=== PATIENT | female | born 1965 | race African-American/Black ===

== ENCOUNTER 2019-02-06 10:46 | Inpatient (IN) | payer OTHER ==
[2019-02-06 11:18] VITALS: BMI 32.5
--- NOTE | 2019-02-06 12:57 | HP ---
CIWA Score Nausea/Vomitin Muscle Tremors: 3 Anxiety: 3 Agitation: 3 Paroxysmal Sweats: 1-Minimal Palms Moist Orientation: 0-Oriented Tacttile Disturbances: 1-Very Mild Itch/Numbness Auditory Disturbances: 0-None Visual Disturbances: 0-None Headache: 2-Mild CIWA-Ar Total Score: 15 - Admission Criteria OASAS Guidelines: Admission for Medically Managed Detox: Requires at least one of the followin. CIWA greater than 12 2. Seizures within the past 24 hours 3. Delirium tremens within the past 24 hours 4. Hallucinations within the past 24 hours 5. Acute intervention needed for co occurring medical disorder 6. Acute intervention needed for co occurring psychiatric disorder 7. Severe withdrawal that cannot be handled at a lower level of care (continued vomiting, continued diarrhea, abnormal vital signs) requiring intravenous medication and/or fluids 8. Admission ROS S - HPI Chief Complaint: i german help to stop drinking alcohol and cocaine Allergies/Adverse Reactions: Allergies Allergy/AdvReac Type Severity Reaction Status Date / Time No Known Allergies Allergy Verified 02/06/19 11:06 History of Present Illness: this 53 years old female with alcohol dependence and cocaine abused,seeking detox,withdrawal symptom, multiple admissions in detox,last [id number] denied seizure,denied syncope nicotine 2 cigarette/day does not want nicotine replacement bipolar disorder,manic depression longest period of sobriety 2 years plan for out patent program after rehab Exam Limitations: No Limitations - Ebola screening Have you traveled outside of the country in the last 21 days: No Have you had contact with anyone from an Ebola affected area: No Do you have a fever: No - Review of Systems Constitutional: Chills, Loss of Appetite, Malaise, Night Sweats, Changes in sleep EENT: reports: Nose Congestion Respiratory: reports: No Symptoms reported Cardiac: reports: No Symptoms Reported GI: reports: Nausea, Poor Appetite, Indigestion : reports: No Symptoms Reported Musculoskeletal: reports: Back Pain, Muscle Pain Integumentary: reports: Dryness Neuro: reports: Tremors Endocrine: reports: No Symptoms Reported Hematology: reports: No Symptoms Reported Psychiatric: reports: No Sypmtoms Reported, Judgement Intact, Mood/Affect Appropiate, Orientated x3, other (bipolar disorder) Other Systems: Reviewed and Negative Patient History - Patient Medical History Hx Anemia: No Hx Asthma: Yes (on albuterol and advair) Hx Chronic Obstructive Pulmonary Disease (COPD): No Hx Cancer: No Hx Cardiac Disorders: No Hx Congestive Heart Failure: No Hx Hypertension: No Hx Hypercholesterolemia: No Hx Pacemaker: No HX Cerebrovascular Accident: No Hx Seizures: No Hx Dementia: No Hx Diabetes: No Hx Gastrointestinal Disorders: No Hx Liver Disease: No Hx Genitourinary Disorders: No Hx Sexually Transmitted Disorders: No Hx Renal Disease (ESRD): No Hx Thyroid Disease: No Hx Human Immunodeficiency Virus (HIV): No (last 01/11 negative) Hx Hepatitis C: No Hx Depression: Yes Hx Suicide Attempt: No Hx Bipolar Disorder: Yes (on med) Hx Schizophrenia: No Other Medical History: nosuicidal,no homicidal - Patient Surgical History Past Surgical History: No - PPD History Previous Implant?: Yes Documented Results: Positive w/o proof Implanted On Prior [facility] Admission?: No PPD to be Administered?: No - Reproductive History Patient is a Female of Child Bearing Age (11 -55 yrs old): Yes Last Menstrual Period: 12/08/09 Patient : No - Smoking Cessation Smoking history: Current every day smoker Have you smoked in the past 12 months: Yes Aproximately how many cigarettes per day: 2 Cigars Per Day: 0 Hx Chewing Tobacco Use: No Initiated information on smoking cessation: Yes 'Breaking Loose' booklet given: 02/06/19 - Substance & Tx. History Hx Alcohol Use: Yes Hx Substance Use: Yes Substance Use Type: Alcohol, Cocaine Hx Substance Use Treatment: Yes (2017 unknown fcility) - Substances abused Alcohol Substance route: Oral Frequency: Daily Amount used: fifth of vodka & 4beers 24 ozs Age of first use: 22 Date of last use: 02/05/19 Cocaine Substance route: Inhalation Frequency: Daily Amount used: $100 Age of first use: 22 Date of last use: 02/05/19 Family Disease History - Family Disease History Family Disease History: Other: Brother (alcohol) Admission Physical Exam [facility] - Vital Signs Vital Signs: Vital Signs - 24 hr 02/06/19 11:05 Temperature 97.2 F L Pulse Rate 60 Respiratory 20 Rate Blood Pressure 116/73 - Physical General Appearance: Yes: Moderate Distress, Tremorous, Irritable, Sweating, Anxious HEENTM: Yes: Normal ENT Inspection, TALYA, Pharynx Normal Respiratory: Yes: Lungs Clear, Normal Breath Sounds, No Respiratory Distress Neck: Yes: Within Normal Limits, Supple, Trachea in good position Breast: Yes: Breast Exam Deferred Cardiology: Yes: Within Normal Limits, Regular Rhythm, Regular Rate, S1, S2 Abdominal: Yes: Within Normal Limits, Normal Bowel Sounds, Non Tender, Flat Genitourinary: Yes: Within Normal Limits Back: Yes: Muscle Spasm Musculoskeletal: Yes: full range of Motion, Back pain, Muscle Pain Extremities: Yes: Tremors Neurological: Yes: 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 room supervisor II-XII NML intact, Fully Oriented, Alert, Motor Strength 5/5 Integumentary: Yes: Dry Lymphatic: Yes: Within Normal Limits - Diagnostic (1) Alcohol dependence with uncomplicated withdrawal Current Visit: Yes Status: Acute (2) Cocaine abuse Current Visit: Yes Status: Acute (3) Dehydration Current Visit: Yes Status: Acute (4) Positive PPD Current Visit: Yes Status: Acute (5) Bipolar disorder Current Visit: Yes Status: Acute (6) Depression Current Visit: Yes Status: Acute Cleared for Admission S - Detox or Rehab [facility] Level of Care: Medically Managed Detox Regimen/Protocol: Librium Breathalyzer - Breathalyzer Breathalyzer: 0 Urine Drug Screen - Test Device Lot number: [id number] Expiration date: 10/23/20 - Control Is test valid?: Yes - Results Drug screen NEGATIVE: No Urine drug screen results: HUGO-Cocaine Inpatient Rehab Admission - Rehab Decision to Admit Inpatient rehab admission?: No
[2019-02-06] MEDS ORDERED: MENTHOL/PHENOL 1 EACH UD MM PRN (13:07)
[2019-02-06] MEDS ORDERED: BISMUTH SUBSALICYLATE 262 MG/15 ML BTL PO PRN (13:07)
[2019-02-06] MEDS ORDERED: ACETAMINOPHEN 325 MG TABLET (FP) PO PRN ×2 (13:07)
[2019-02-06] MEDS ORDERED: MAGNESIUM CITRATE 300 ML BOTTLE PO PRN (13:07)
[2019-02-06] MEDS ORDERED: METHOCARBAMOL 500 MG TABLET PO PRN (13:07)
[2019-02-06] MEDS ORDERED: IBUPROFEN 400 MG TABLET (FP) PO PRN (13:07)
[2019-02-06] MEDS ORDERED: hydrOXYzine HCL 25 MG TABLET (FP) PO PRN (13:07)
[2019-02-06] MEDS ORDERED: MAGNESIUM HYDROX 2400MG/30ML ORAL SUSPENSION 30 ML CUP PO PRN (13:07)
[2019-02-06] MEDS ORDERED: MAG HYDROX/AL HYDROX/SIMETH 30 ML UNIT-DOSE CUP PO PRN (13:07)
[2019-02-06] MEDS ORDERED: chlordiazePOXIDE HCL 25 MG CAPSULE PO PRN (13:07)
--- NOTE | 2019-02-06 16:04 | EKG ---
Test Reason : Blood Pressure : / mmHG Vent. Rate : 059 BPM Atrial Rate : 059 BPM P-R Int : 146 ms QRS Dur : 078 ms QT Int : 438 ms P-R-T Axes : 066 065 063 degrees QTc Int : 433 ms SINUS BRADYCARDIA MINIMAL VOLTAGE CRITERIA FOR LVH, MAY BE NORMAL VARIANT BORDERLINE ECG NO PREVIOUS ECGS AVAILABLE Confirmed by DORON ESTRADA MD ([id number]) on 02/06/2019 4:03:20 PM Referred By: Confirmed By:DORON ESTRADA MD
[2019-02-06] MEDS: chlordiazePOXIDE HCL 25 MG CAPSULE PO SCH ×2 (17:58→22:28)
[2019-02-06] MEDS: MELATONIN 5 MG TABLETS PO PRN (22:28)
[2019-02-06] MEDS: THIAMINE HCL 100 MG TABLET (FP) PO SCH (22:28)
[2019-02-07] MEDS: chlordiazePOXIDE HCL 25 MG CAPSULE PO SCH ×4 (06:54→22:40)
[2019-02-07 10:05] LABS: HEMATOCRIT 39.6 % (32.4-45.2); HEMOGLOBIN 12.9 GM/dL (10.7-15.3); MCH 30.1 pg (25.7-33.7); MCHC 32.5 g/dl (32.0-36.0); MEAN CELL VOLUME 92.6 fl (80-96); MEAN PLT VOLUME 11.7 fl (7.5-11.1); PLATELET COUNT 181 K/MM3 (134-434); RBC 4.28 M/mm3 (3.60-5.2); RDW 13.9 % (11.6-15.6); WHITE BLOOD COUNT 5.1 K/mm3 (4.0-10.0)
[2019-02-07 10:06] LABS: PH,URINE 5.5 (5.0-8.0); URINE APPEARANCE CLOUDY; URINE BILIRUBIN NEGATIVE (NEGATIVE); URINE COLOR YELLOW; URINE GLUCOSE (UA) NEGATIVE (NEGATIVE); URINE KETONE NEGATIVE (NEGATIVE); URINE LEUK ESTERASE NEGATIVE (NEGATIVE); URINE NITRITE NEGATIVE (NEGATIVE); URINE PROTEIN NEGATIVE (NEGATIVE); URINE UROBILINOGEN 0.2 mg/dL (0.2-1.0)
[2019-02-07 10:16] LABS: BILIRUBIN,TOTAL 0.2 mg/dL (0.2-1); BLOOD UREA NITROGEN 18.6 mg/dL (7-18); CALCIUM 9.2 mg/dL (8.5-10.1); POTASSIUM 4.1 mmol/L (3.5-5.1); TOT PROT 7.9 g/dl (6.4-8.2)
[2019-02-07] MEDS: PRENATAL VITAMINS W/ FOLIC ACID TABLET (FP) PO SCH (10:37)
--- NOTE | 2019-02-07 11:22 | PN ---
S CIWA - CIWA Score Nausea/Vomitin-No Nausea/No Vomiting Muscle Tremors: 2 Anxiety: 3 Agitation: 0-Normal Activity Paroxysmal Sweats: 4-Forehead w/Sweat Beads Orientation: 0-Oriented Tacttile Disturbances: 0-None Auditory Disturbances: 0-None Visual Disturbances: 0-None Headache: 2-Mild CIWA-Ar Total Score: 11 S Progress Note (SOAP) Subjective: c/o headache, stomach cramp, sweats, and anxiety. Objective: 02/07/19 11:20 Vital Signs 02/07/19 02/07/19 02/07/19 03:30 08:27 09:48 Temperature 98.1 F 98.8 F Pulse Rate 70 66 Respiratory 18 18 18 Rate Blood Pressure 123/55 L 140/90 Lab Results WBC 5.1 K/mm3 (4.0-10.0) 02/07/19 07:00 RBC 4.28 M/mm3 (3.60-5.2) 02/07/19 07:00 Hgb 12.9 GM/dL (10.7-15.3) 02/07/19 07:00 Hct 39.6 % (32.4-45.2) 02/07/19 07:00 MCV 92.6 fl (80-96) 02/07/19 07:00 MCHC 32.5 g/dl (32.0-36.0) 02/07/19 07:00 RDW 13.9 % (11.6-15.6) 02/07/19 07:00 Plt Count 181 K/MM3 (134-434) 02/07/19 07:00 Sodium 145 mmol/L (136-145) 02/07/19 07:00 Potassium 4.1 mmol/L (3.5-5.1) 02/07/19 07:00 Chloride 110 mmol/L (98-107) H 02/07/19 07:00 Carbon Dioxide 28 mmol/L (21-32) 02/07/19 07:00 Anion Gap 7 MMOL/L (8-16) L 02/07/19 07:00 BUN 18.6 mg/dL (7-18) H 02/07/19 07:00 Creatinine 1.0 mg/dL (0.55-1.3) 02/07/19 07:00 Random Glucose 67 mg/dL (74-106) L 02/07/19 07:00 Calcium 9.2 mg/dL (8.5-10.1) 02/07/19 07:00 Labs noted. Assessment: 02/07/19 11:21 AOX3, in no respiratory distress. Full ROM, ambulating in the unit. withdrawal symptoms. Plan: continue detox.
[2019-02-07] MEDS: THIAMINE HCL 100 MG TABLET (FP) PO SCH (22:40)
[2019-02-08] MEDS ORDERED: chlordiazePOXIDE HCL 25 MG CAPSULE PO SCH (05:00)
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
[2019-02-08] MEDS: SERTRALINE HCL 50 MG TABLET (FP) PO SCH (10:18)
[2019-02-08] MEDS: PRENATAL VITAMINS W/ FOLIC ACID TABLET (FP) PO SCH (10:18)
[2019-02-08] MEDS: LORazepam 2 MG TABLET PO SCH ×3 (10:35→22:30)
--- NOTE | 2019-02-08 12:19 | PN ---
S CIWA - CIWA Score Nausea/Vomitin-No Nausea/No Vomiting Muscle Tremors: 1-None Visible, but [place] Anxiety: 3 Agitation: 2 Paroxysmal Sweats: 3 Orientation: 0-Oriented Tacttile Disturbances: 0-None Auditory Disturbances: 0-None Visual Disturbances: 0-None Headache: 2-Mild CIWA-Ar Total Score: 11 S Progress Note (SOAP) Subjective: c/o anxiety, headache, stomach cramps, and sweats. Pt states that she is not taking the librium because it's causing a lot of stomach upset for her. Objective: 02/08/19 12:18 Vital Signs 02/08/19 02/08/19 06:00 09:54 Temperature 97.7 F 98.4 F Pulse Rate 67 67 Respiratory 18 18 Rate Blood Pressure 124/58 L 130/73 Lab Results WBC 5.1 K/mm3 (4.0-10.0) 02/07/19 07:00 RBC 4.28 M/mm3 (3.60-5.2) 02/07/19 07:00 Hgb 12.9 GM/dL (10.7-15.3) 02/07/19 07:00 Hct 39.6 % (32.4-45.2) 02/07/19 07:00 MCV 92.6 fl (80-96) 02/07/19 07:00 MCHC 32.5 g/dl (32.0-36.0) 02/07/19 07:00 RDW 13.9 % (11.6-15.6) 02/07/19 07:00 Plt Count 181 K/MM3 (134-434) 02/07/19 07:00 Sodium 145 mmol/L (136-145) 02/07/19 07:00 Potassium 4.1 mmol/L (3.5-5.1) 02/07/19 07:00 Chloride 110 mmol/L (98-107) H 02/07/19 07:00 Carbon Dioxide 28 mmol/L (21-32) 02/07/19 07:00 Anion Gap 7 MMOL/L (8-16) L 02/07/19 07:00 BUN 18.6 mg/dL (7-18) H 02/07/19 07:00 Creatinine 1.0 mg/dL (0.55-1.3) 02/07/19 07:00 Random Glucose 67 mg/dL (74-106) L 02/07/19 07:00 Calcium 9.2 mg/dL (8.5-10.1) 02/07/19 07:00 Labs noted. Assessment: 02/08/19 12:19 AOX3, in no acute respiratory distress. Full ROM, ambulating in the unit. Withdrawal symptoms. Plan: continue detox. change librium protocol to ativan protocol.
[2019-02-08] MEDS: busPIRone HCL 5 MG TABLET PO SCH ×2 (13:33→22:30)
[2019-02-08] MEDS: THIAMINE HCL 100 MG TABLET (FP) PO SCH (22:30)
[2019-02-08] MEDS: OLANZapine 10 MG TABLET PO SCH (22:30)
[2019-02-08] MEDS: MELATONIN 5 MG TABLETS PO PRN (22:31)
[2019-02-09] MEDS ORDERED: chlordiazePOXIDE HCL 10 MG CAPSULE PO PRN
[2019-02-09] MEDS ORDERED: chlordiazePOXIDE HCL 10 MG CAPSULE PO SCH (05:00)
[2019-02-09] MEDS ORDERED: LORazepam 0.5 MG TABLET ONE ×4 (05:47→21:36)
[2019-02-09] MEDS: busPIRone HCL 5 MG TABLET PO SCH ×3 (06:16→22:37)
[2019-02-09] MEDS: LORazepam 1 MG TABLET PO SCH ×4 (06:16→22:37)
[2019-02-09] MEDS: SERTRALINE HCL 50 MG TABLET (FP) PO SCH (10:39)
[2019-02-09] MEDS: PRENATAL VITAMINS W/ FOLIC ACID TABLET (FP) PO SCH (10:39)
--- NOTE | 2019-02-09 12:33 | PN ---
S CIWA - CIWA Score Nausea/Vomitin-No Nausea/No Vomiting Muscle Tremors: 2 Anxiety: 3 Agitation: 0-Normal Activity Paroxysmal Sweats: 3 Orientation: 0-Oriented Tacttile Disturbances: 0-None Auditory Disturbances: 0-None Visual Disturbances: 0-None Headache: 2-Mild CIWA-Ar Total Score: 10 S Progress Note (SOAP) Subjective: c/o mild shakes, anxiety, sweats, and headache. Objective: 02/09/19 12:32 Vital Signs 02/09/19 02/09/19 07:49 09:48 Temperature 98.1 F 97.5 F L Pulse Rate 70 74 Respiratory 16 16 Rate Blood Pressure 136/72 117/59 L Lab Results WBC 5.1 K/mm3 (4.0-10.0) 02/07/19 07:00 RBC 4.28 M/mm3 (3.60-5.2) 02/07/19 07:00 Hgb 12.9 GM/dL (10.7-15.3) 02/07/19 07:00 Hct 39.6 % (32.4-45.2) 02/07/19 07:00 MCV 92.6 fl (80-96) 02/07/19 07:00 MCHC 32.5 g/dl (32.0-36.0) 02/07/19 07:00 RDW 13.9 % (11.6-15.6) 02/07/19 07:00 Plt Count 181 K/MM3 (134-434) 02/07/19 07:00 Sodium 145 mmol/L (136-145) 02/07/19 07:00 Potassium 4.1 mmol/L (3.5-5.1) 02/07/19 07:00 Chloride 110 mmol/L (98-107) H 02/07/19 07:00 Carbon Dioxide 28 mmol/L (21-32) 02/07/19 07:00 Anion Gap 7 MMOL/L (8-16) L 02/07/19 07:00 BUN 18.6 mg/dL (7-18) H 02/07/19 07:00 Creatinine 1.0 mg/dL (0.55-1.3) 02/07/19 07:00 Random Glucose 67 mg/dL (74-106) L 02/07/19 07:00 Calcium 9.2 mg/dL (8.5-10.1) 02/07/19 07:00 Labs noted. Assessment: 02/09/19 12:32 AOX3, in no acute distress. Full ROM, ambulating in the unit. Withdrawal symptoms. Plan: continue detox.
[2019-02-09] MEDS: OLANZapine 10 MG TABLET PO SCH (22:37)
[2019-02-09] MEDS: THIAMINE HCL 100 MG TABLET (FP) PO SCH (22:37)
[2019-02-10] MEDS ORDERED: chlordiazePOXIDE HCL 10 MG CAPSULE PO SCH (05:00)
[2019-02-10] MEDS ORDERED: LORazepam 1 MG TABLET PO SCH (05:00)
[2019-02-10] MEDS: busPIRone HCL 5 MG TABLET PO SCH ×3 (07:26→22:44)
[2019-02-10] MEDS: LORazepam 0.5 MG TABLET PO SCH ×4 (07:26→22:44)
[2019-02-10] MEDS: PRENATAL VITAMINS W/ FOLIC ACID TABLET (FP) PO SCH (10:39)
[2019-02-10] MEDS: SERTRALINE HCL 50 MG TABLET (FP) PO SCH (10:39)
--- NOTE | 2019-02-10 14:13 | PN ---
S CIWA - CIWA Score Nausea/Vomitin-No Nausea/No Vomiting Muscle Tremors: 2 Anxiety: 1-Mildly Anxious Agitation: 1-Slight > Activity Paroxysmal Sweats: No Perspiration Orientation: 0-Oriented Tacttile Disturbances: 0-None Auditory Disturbances: 0-None Visual Disturbances: 0-None Headache: 0-None Present CIWA-Ar Total Score: 4 BHS Progress Note (SOAP) Subjective: dizzy/tired little sweats Objective: 02/10/19 14:19 Vital Signs Temperature 98.2 F 02/10/19 13:56 Pulse Rate 87 02/10/19 13:56 Respiratory Rate 18 02/10/19 13:56 Blood Pressure 138/84 02/10/19 13:56 O2 Sat by Pulse Oximetry (%) aaox3 ambulating no acute distress Assessment: 02/10/19 14:20 mild withdrawal sx Plan: continue detox increase fluids d/c in am
[2019-02-10] MEDS: OLANZapine 10 MG TABLET PO SCH (22:44)
[2019-02-10] MEDS: THIAMINE HCL 100 MG TABLET (FP) PO SCH (22:44)
[2019-02-11] MEDS ORDERED: LORazepam 0.5 MG TABLET PO PRN
[2019-02-11] MEDS ORDERED: chlordiazePOXIDE HCL 10 MG CAPSULE PO ONE (05:00)
[2019-02-11] MEDS ORDERED: LORazepam 0.5 MG TABLET PO SCH (05:00)
[2019-02-11] MEDS ORDERED: LORazepam 0.5 MG TABLET PO ONE (05:00)
[2019-02-11] MEDS: busPIRone HCL 5 MG TABLET PO SCH (05:22)
[2019-02-11 07:46] VITALS: BP 126/63; PULSE 68; TEMP 97.5
--- NOTE | 2019-02-11 09:45 | DS ---
[facility] Detox Discharge Summary Admission Date: 02/06/19 Discharge Date: 02/11/19 - History Present History: Alcohol Dependence, Cannabis Dependence, Cocaine Dependence - Physical Exam Results Vital Signs: Vital Signs Temperature 97.5 F L 02/11/19 06:00 Pulse Rate 68 02/11/19 06:00 Respiratory Rate 18 02/11/19 06:00 Blood Pressure 126/63 02/11/19 06:00 O2 Sat by Pulse Oximetry (%) Pertinent Admission Physical Exam Findings: pt arrived in withdrawals Laboratory Tests 02/07/19 02/07/19 02/07/19 07:00 07:00 07:00 WBC 5.1 RBC 4.28 Hgb 12.9 Hct 39.6 MCV 92.6 MCH 30.1 MCHC 32.5 RDW 13.9 Plt Count 181 MPV 11.7 H Sodium 145 Potassium 4.1 Chloride 110 H Carbon Dioxide 28 Anion Gap 7 L BUN 18.6 H Creatinine 1.0 Est GFR (CKD-EPI)AfAm 73.45 Est GFR (CKD-EPI)NonAf 63.37 Random Glucose 67 L Calcium 9.2 Total Bilirubin 0.2 AST 16 ALT 16 Alkaline Phosphatase 124 H Total Protein 7.9 Albumin 4.0 Urine Color Urine Appearance Urine pH Ur Specific [place] Urine Protein Urine Glucose (UA) Urine Ketones Urine Blood Urine Nitrite Urine Bilirubin Urine Urobilinogen Ur Leukocyte Esterase RPR Titer Nonreactive 02/07/19 07:00 WBC RBC Hgb Hct MCV MCH MCHC RDW Plt Count MPV Sodium Potassium Chloride Carbon Dioxide Anion Gap BUN Creatinine Est GFR (CKD-EPI)AfAm Est GFR (CKD-EPI)NonAf Random Glucose Calcium Total Bilirubin AST ALT Alkaline Phosphatase Total Protein Albumin Urine Color Yellow Urine Appearance Cloudy Urine pH 5.5 Ur Specific [place] 1.019 Urine Protein Negative Urine Glucose (UA) Negative Urine Ketones Negative Urine Blood Negative Urine Nitrite Negative Urine Bilirubin Negative Urine Urobilinogen 0.2 Ur Leukocyte Esterase Negative RPR Titer today pt is aaox3 ambulating no s/s of withdrawals - Treatment Hospital Course: Detox Protocol Followed, Detoxed Safely, Responded well, Discharged Condition Good, Rehab Referral Accepted Patient has Accepted a Rehab Referral to: declined rehab; referral provided - Medication Discharge Medications: Ambulatory Orders Alprazolam [Xanax] 1 mg PO DAILY 02/06/19 Olanzapine [Zyprexa] 20 mg PO DAILY 02/06/19 Sertraline HCl [Zoloft] 200 mg PO DAILY 02/06/19 - Diagnosis (1) Alcohol dependence with uncomplicated withdrawal Current Visit: Yes Status: Chronic (2) Bipolar disorder Current Visit: Yes Status: Acute (3) Cocaine dependence Current Visit: Yes Status: Chronic Qualifiers: Substance use status: uncomplicated Qualified Code(s): F14.20 - Cocaine dependence, uncomplicated (4) Depression Current Visit: Yes Status: Acute (5) Substance induced mood disorder Current Visit: Yes Status: Acute (6) Substance-induced sleep disorder Current Visit: Yes Status: Acute (7) Anemia Current Visit: Yes Status: Chronic (8) Arthritis of both knees Current Visit: Yes Status: Chronic (9) Bipolar II disorder Current Visit: Yes Status: Chronic (10) Bronchial asthma Current Visit: Yes Status: Chronic (11) Nicotine dependence Current Visit: Yes Status: Chronic Qualifiers: Nicotine product type: cigarettes Substance use status: uncomplicated Qualified Code(s): F17.210 - Nicotine dependence, cigarettes, uncomplicated (12) Positive PPD Current Visit: Yes Status: Resolved (13) Schizoaffective disorder Current Visit: Yes Status: Ruled-out - AMA Did Patient Leave Against Medical Advice: No
[2019-02-12] MEDS ORDERED: LORazepam 0.5 MG TABLET PO ONE (05:00)
== END 2019-02-11 08:25 | disposition home or self-care (01) | DRG 774 ==
LOC: YASAS 10:46 → Y6N 13:23
PROVIDERS: ADMIT Surgery; ATTEND Surgery
PROC: HZ2ZZZZ Detoxification Services for Substance Abuse Treatment (ICD-10-PCS; principal; 2019-02-06)
DX: F10.230 Alcohol dependence with withdrawal, uncomplicated (principal); F14.20 Cocaine dependence, uncomplicated; F17.210 Nicotine dependence, cigarettes, uncomplicated; F25.9 Schizoaffective disorder, unspecified; F19.24 Other psychoactive substance dependence with psychoactive substance-induced mood disorder; F19.282 Other psychoactive substance dependence with psychoactive substance-induced sleep disorder; F31.81 Bipolar II disorder; J45.909 Unspecified asthma, uncomplicated; F64.9 Gender identity disorder, unspecified; M17.0 Bilateral primary osteoarthritis of knee; R76.11 Nonspecific reaction to tuberculin skin test without active tuberculosis
CPT/HCPCS: 36415; 71046-TC-FY; 80053; 81003; 85027; 86593; 93005; 93010